=== PATIENT | female | born 1995 | race Hispanic/Latino ===

== ENCOUNTER 2023-03-11 15:51 | Emergency (ER) | payer OTHER ==
[~2023-03-11] VITALS: Ht 165.1 cm; Wt 105.2 kg
[2023-03-11 17:03] VITALS: BP 130/61
[2023-03-11 17:48] LABS: BASOPHILS % (AUTO) 0.1 % (0.0-5.0); HEMATOCRIT 45.8 % (36-48); LYMPHOCYTES % (AUTO) 4.4 % (21.0-51.0); MEAN CORPUSCULAR HEMOGLOBIN 29.9 pg (27.0-33.0); MEAN CORPUSCULAR HGB CONC 32.8 g/dL (32.0-36.0); MEAN CORPUSCULAR VOLUME 91.4 fL (79-99); MONOCYTES % (AUTO) 2.6 % (3.0-13.0); NEUTROPHILS % (AUTO) 92.5 % (40.0-77.0); PLATELET COUNT (AUTO) 223 K/uL (130-400); RED BLOOD CELL COUNT(AUTO) 5.01 MIL/uL (4.00-5.50); RED CELL DISTRIBUTION WIDTH 12.4 % (11.0-15.5); WHITE BLOOD COUNT (AUTO) 13.7 K/uL (4.8-10.8)
[2023-03-11 17:50] LABS: APPEARANCE,URINE CLEAR (CLEAR); BILIRUBIN,URINE NEGATIVE (NEGATIVE); COLOR,URINE LIGHT-YELLOW (YELLOW); GLUCOSE, URINE (UA) NEGATIVE (NEGATIVE); KETONES,URINE 10 mg/dL (NEGATIVE); LEUKOCYTE ESTERASE ,URINE NEGATIVE Leu/uL (NEGATIVE); NITRATE,URINE NEGATIVE (NEGATIVE); OCCULT BLOOD,URINE NEGATIVE (NEGATIVE); PH,URINE 5.5 (5.0-8.0); PROTEIN,URINE NEGATIVE (NEGATIVE); UROBILINOGEN,URINE 0.2 mg/dL (0.2-1.0)
[2023-03-11 17:52] LABS: BACTERIA,URINE FEW /HPF (None Seen); MUCUS,URINE RARE LPF (None Seen); RBC,URINE 0-1 /HPF (0-1); SQUAMOUS EPITHELIAL CELL,UR RARE /HPF (0-2)
[2023-03-11 17:53] LABS: HCG,QUALITATIVE URINE NEGATIVE (NEGATIVE)
[2023-03-11 18:06] LABS: CARBON DIOXIDE 25 mmol/L (21-32); CHLORIDE 100 mmol/L (101-111); GLOMERULAR FILTR. RATE CALC 78 mL/min (>90); GLUCOSE,RANDOM 104 mg/dL (70-105); POTASSIUM 3.6 mmol/L (3.5-5.1); SODIUM SERUM 134 mmol/L (136-145); UREA NITROGEN, BLOOD 17 mg/dL (7-18)
[2023-03-11 18:10] LABS: ALANINE AMINOTRANSFERASE 45 U/L (12-78); AMYLASE 25 U/L (25-115); ASPARTATE AMINOTRANSFERASE 21 U/L (10-37); LIPASE < 50 U/L (114-286); TOTAL PROTEIN, SERUM 7.6 g/dL (6.0-8.3)
[2023-03-11] MEDS ORDERED: LIDOCAINE HCL 2% VISCOUS 15 ML UDCUP PO ONE (19:30)
[2023-03-11] MEDS ORDERED: MAG/ALUM/SIMETH 30 ML UDCUP PO ONE (19:30)
[2023-03-11] MEDS ORDERED: IOHEXOL 350 MG/ML 100ML INFUS..BTL IV ONE (19:32)
[2023-03-11] MEDS ORDERED: 0.9%NACL 1000ML 1,000 ML IV ONE (20:30)
[2023-03-11] MEDS ORDERED: ONDANSETRON 4MG INJ IVP ONE (20:30)
[2023-03-11] MEDS ORDERED: LEVO750T68 PO (21:09)
[2023-03-11] MEDS ORDERED: ONDA4TAB10 PO (21:10)
== END 2023-03-11 21:56 | disposition home or self-care (01) ==
LOC: EDH 15:51
DX: K52.9 Noninfective gastroenteritis and colitis, unspecified (principal); D27.9 Benign neoplasm of unspecified ovary; R11.2 Nausea with vomiting, unspecified; Z90.49 Acquired absence of other specified parts of digestive tract; Z88.8 Allergy status to other drugs, medicaments and biological substances
CPT/HCPCS: 99285; 74177; 96374; 71045; 96361; 82150; 80053; 83690; 85025; 87040 ×2; 83605; 81001; 81025; 36415; J2405; Q9967